=== PATIENT | female | born 1985 | race American Indian/Alaskan Native ===

== ENCOUNTER 2017-01-03 13:02 | Inpatient (IN) | payer OTHER, BC ==
[2017-01-03] MEDS ORDERED: Sodium Chloride 0.9% 10 ML Syringe FLUSH PRN (13:52)
[2017-01-03] MEDS ORDERED: Ampicillin 2 GM in Sodium Chloride 0.9% 100 ML IV ONE (13:52)
[2017-01-03] MEDS ORDERED: Nalbuphine 20 MG/1 ML Amp IVPUSH PRN (13:52)
[2017-01-03] MEDS: Lactated Ringers 1,000 ML IV SCH ×2 (14:15→16:00)
[2017-01-03] MEDS ORDERED: ePHEDrine 50 MG/ML SDV IVPUSH PRN (16:37)
[2017-01-03] MEDS ORDERED: fentaNYL 100 MCG/2 ML SDV EPIDUR PRN (16:37)
[2017-01-03] MEDS ORDERED: Ondansetron 4 MG/2 ML SDV IVPUSH PRN (16:37)
--- NOTE | 2017-01-03 16:39 | PCM.PREANE ---
Preanesthetic Assessment - Anesthesia/Transfusion/Family Hx Anesthesia History: Prior Anesthesia Without Reaction Family History of Anesthesia Reaction: No Transfusion History: No Prior Transfusion(s) Intubation History: Unknown - Review of Systems General: No Symptoms Pulmonary: No Symptoms (quit smoking with ) Cardiovascular: No Symptoms Gastrointestinal: No Symptoms Neurological: No Symptoms Other: Reports: None - Physical Assessment NPO Status Date: 01/03/17 NPO Status Time: 10:15 Pulse: 81 O2 Sat by Pulse Oximetry: 99 Respiratory Rate: 22 Blood Pressure: 107/69 Temperature: 36.4 C Vital Signs: Last Vital Signs Temp 36.4 C 01/03/17 13:52 Pulse 81 01/03/17 15:00 Resp BP 107/69 01/03/17 15:00 Pulse Ox Height: 1.63 m Weight: 68.492 kg ASA Class: 2 Mental Status: Alert & Oriented x3 Airway Class: Mallampati = 2 Dentition: Reports: Normal Dentition, Caries Thyro-Mental Finger Breadths: 3 Mouth Opening Finger Breadths: 3 ROM/Head Extension: Full Lungs: Clear to Auscultation, Normal Respiratory Effort Cardiovascular: Regular Rate, Regular Rhythm, No Murmurs - Lab Values: Laboratory Last Values WBC 12.64 K/mm3 (3.98-10.04) H 01/03/17 14:16 RBC 3.81 M/mm3 (3.98-5.22) L 01/03/17 14:16 Hgb 11.5 gm/L (11.2-15.7) 01/03/17 14:16 Hct 34.1 % (34.1-44.9) 01/03/17 14:16 MCV 89.5 fl (79.4-94.8) 01/03/17 14:16 MCH 30.2 pg (25.6-32.2) 01/03/17 14:16 MCHC 33.7 g/dl (32.2-35.5) 01/03/17 14:16 RDW Std Deviation 42.1 fL (36.4-46.3) 01/03/17 14:16 Plt Count 264 K/mm3 (182-369) 01/03/17 14:16 MPV 10.9 fl (9.4-12.3) 01/03/17 14:16 Above labs reviewed and noted. - Allergies Allergies/Adverse Reactions: Allergies Allergy/AdvReac Type Severity Reaction Status Date / Time No Known Allergies Allergy Verified 01/03/17 13:50 - Anesthesia Plan Pre-Op Medication Ordered: None - Acknowledgements Anesthesia Type Planned: Spinal (Laboring Spinal vs MARCELINO), Epidural Pt an Appropriate Candidate for the Planned Anesthesia: Yes Alternatives and Risks of Anesthesia Discussed w Pt/Guardian: Yes Pt/Guardian Understands and Agrees with Anesthesia Plan: Yes PreAnesthesia Questionnaire HEENT History: Reports: None CRA History: Reports: - Past Surgical History HEENT Surgical History: Reports: Oral Surgery - SUBSTANCE USE Smoking Status *Q: Former Smoker Tobacco Use Within Last Twelve Months: Cigarettes Second Hand Smoke Exposure: No Recreational Drug Use History: No - CURRENT (IN HOUSE) MEDS Current Meds: Current Medications Ampicillin Sodium 1 gm/ Sodium (Chloride) 100 mls @ 200 mls/hr IV Q4H [facility] Lactated Ringer's (Ringers, Lactated) 1,000 mls @ 100 mls/hr IV ASDIRECTED EUGENE Last Admin: 01/03/17 14:15 Dose: 100 mls/hr Nalbuphine HCl (Nubain) 10 mg IVPUSH Q2H PRN PRN Reason: Pain (moderate 4-6) Last Admin: 01/03/17 14:21 Dose: 10 mg Sodium Chloride (Saline Flush) 10 ml FLUSH ASDIRECTED PRN PRN Reason: Keep Vein Open Discontinued Medications Ampicillin Sodium 2 gm/ Sodium (Chloride) 100 mls @ 200 mls/hr IV ONETIME ONE Stop: 01/03/17 14:21 Last Admin: 01/03/17 14:15 Dose: 200 mls/hr
[2017-01-03] MEDS ORDERED: Bupivacaine/fentaNYL/NS 100 ML Bag EPIDUR SCH (16:45)
--- NOTE | 2017-01-03 17:02 | PCM.LDHP ---
L&D History of Present Illness - General Date of Service: 01/03/17 Admit Problem/Dx: Patient Status Order with Admit Dx/Problem 01/03/17 13:52 Patient Status [ADT] Routine Admission Diagnosis/Problem Admission Diagnosis/Problem Source of Information: Patient, Old Records History Limitations: Reports: No Limitations - History of Present Illness Introduction:: 31 year old female at 36w3d by LMP c/w 20 week ultrasound here in labor. care with myself complicated by one prior 36 week and anemia. Contractions started this morning around 7 am and have progressively gotten stronger. No loss of fluid. No vaginal bleeding. Apos/RubNI/GBS pending History of x2 largest 6#. 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: - Past Surgical History HEENT Surgical History: Reports: Oral Surgery Social & Family History - Family History Family Medical History: Noncontributory - Tobacco Use Smoking Status *Q: Former Smoker Used Tobacco, but Quit: Yes Month Tobacco Last Used: may 2016 Second Hand Smoke Exposure: No - Caffeine Use Caffeine Use: Reports: None - Recreational Drug Use Recreational Drug Use: No H&P Review of Systems - Review of Systems: Review Of Systems: See Below General: Reports: No Symptoms HEENT: Reports: No Symptoms Pulmonary: Reports: No Symptoms Cardiovascular: Reports: No Symptoms Gastrointestinal: Reports: No Symptoms Genitourinary: Reports: No Symptoms Musculoskeletal: Reports: No Symptoms Skin: Reports: No Symptoms Psychiatric: Reports: No Symptoms Neurological: Reports: No Symptoms Hematologic/Lymphatic: Reports: No Symptoms Immunologic: Reports: No Symptoms L&D Exam - Exam Exam: See Below - Vital Signs Vital Signs: Last Vital Signs Temp 36.4 C 01/03/17 16:51 Pulse 81 01/03/17 16:51 Resp 22 H 01/03/17 16:51 BP 107/69 01/03/17 16:51 Pulse Ox 99 01/03/17 16:51 Weight: 68.492 kg - OB Specific Contraction Duration (sec): 60 Contraction Frequency (min): 4-5 Contraction Intensity: Mild to Moderate Movement: Active Heart Tones: Present Heart Tones per Min: 140 Heart Rate (FHR) Variability: Moderate (6-25 bmp) Presentation: Vertex - Khanna Score Khanna Score Cervix Position: Midposition Khanna Score Consistency: Soft Khanna Score Effacement: 31-50% Khanna Score Dilation: 3-4 cm Khanna Score Infant's Station: -3 Khanna Score Total: 6 - Exam General: Alert, Oriented HEENT: PERRLA, Conjunctiva Clear, EACs Clear, EOMI, Hearing Intact, Mucosa Moist & Lucas, Nares Patent, Normal Nasal Septum, Posterior Pharynx Clear, TMs Clear Neck: Supple, Trachea Midline Lungs: Clear to Auscultation, Normal Respiratory Effort Cardiovascular: Regular Rate, Regular Rhythm GI/Abdominal Exam: Normal Bowel Sounds, Soft, Non-Tender, No Organomegaly, No Distention, No Abnormal Bruit, No Mass, Pelvis Stable Genitourinary: Normal external exam Back Exam: Normal Inspection, Full Range of Motion Extremities: Normal Inspection, Normal Range of Motion, Non-Tender, No Pedal Edema, Normal Capillary Refill Skin: Warm, Dry, Intact Neurological: Cranial Nerves Intact, Reflexes Equal Bilateral Psychiatric: Alert, Normal Affect, Normal Mood - Patient Data Lab Results Last 24 hrs: Laboratory Results - last 24 hr 01/03/17 Range/Units 14:16 WBC 12.64 H (3.98-10.04) K/mm3 RBC 3.81 L (3.98-5.22) M/mm3 Hgb 11.5 (11.2-15.7) gm/L Hct 34.1 (34.1-44.9) % MCV 89.5 (79.4-94.8) fl MCH 30.2 (25.6-32.2) pg MCHC 33.7 (32.2-35.5) g/dl RDW Std Deviation 42.1 (36.4-46.3) fL Plt Count 264 (182-369) K/mm3 MPV 10.9 (9.4-12.3) fl Result Diagrams: 01/03/17 14:16 - Problem List (1) labor in third trimester SNOMED Code(s): 7173269 ICD Code: O60.03 - LABOR WITHOUT DELIVERY, THIRD TRIMESTER Status: Acute Current Visit: Yes (2) Rubella non-immune status, antepartum SNOMED Code(s): 183875377 ICD Code: O99.89 - OTH DISEASES AND CONDITIONS COMPL PREG/CHLDBRTH; Z28.3 - UNDERIMMUNIZATION STATUS Status: Acute Current Visit: Yes Problem List Initiated/Reviewed/Updated: Yes Orders Last 24hrs: Active Orders 24 hr Category Date Time Status Patient Status [ADT] Routine ADT 01/03/17 13:52 Active Activity as Tolerated [RC] PFP Care 01/03/17 13:52 Active Communication Order [RC] ASDIRECTED Care 01/03/17 13:52 Active Heart Tones [RC] ASDIRECTED Care 01/03/17 13:52 Active Notify Provider [RC] ASDIRECTED Care 01/03/17 16:37 Active Notify Provider [RC] PFP Care 01/03/17 13:52 Active Notify Provider [RC] PRN Care 01/03/17 13:52 Active Oxygen Therapy [RC] ASDIRECTED Care 01/03/17 16:37 Active Peripheral IV Care [RC] . DIRECTED Care 01/03/17 13:52 Active Pulse Oximetry [RC] ASDIRECTED Care 01/03/17 16:37 Active Vital Signs [RC] PER UNIT ROUTINE Care 01/03/17 13:52 Active Clear Liquid Diet [DIET] Diet 01/03/17 Dinner Active GROUP B STREP BY PCR [MOLEC] Routine Lab 01/03/17 13:45 Received Ampicillin 1 gm Med 01/03/17 18:00 Active Sodium Chloride 0.9% [Normal Saline] 100 ml IV Q4H Bupivacaine/fentaNYL/NS [fentaNYL/Bupivacaine/NS 2 MCG- Med 01/03/17 16:45 Active 0.125% 100 ML] 100 ml EPIDUR ASDIRECTED Lactated Ringers [Ringers, Lactated] 1,000 ml Med 01/03/17 14:00 Active IV ASDIRECTED Nalbuphine [Nubain] Med 01/03/17 13:52 Active 10 mg IVPUSH Q2H PRN Ondansetron [Zofran] Med 01/03/17 16:37 Active 4 mg IVPUSH ONETIME PRN Sodium Chloride 0.9% [Saline Flush] Med 01/03/17 13:52 Active 10 ml FLUSH ASDIRECTED PRN ePHEDrine [ePHEDrine Sulfate] Med 01/03/17 16:37 Active 5 mg IVPUSH ASDIRECTED PRN fentaNYL [Sublimaze] Med 01/03/17 16:37 Active 100 mcg EPIDUR Q3H PRN Electronic Heart Tones Ext w TOCO [WOMSER] Oth 01/03/17 13:52 Ordered Routine Electronic Heart Tones Internal [WOMSER] Per Unit Oth 01/03/17 13:52 Ordered Routine Peripheral IV Insertion Adult [OM.PC] Routine Oth 01/03/17 13:52 Ordered Resuscitation Status Routine Resus Stat 01/03/17 13:52 Ordered Medication Orders Ephedrine Sulfate (Ephedrine Sulfate) 5 mg IVPUSH ASDIRECTED PRN PRN Reason: Hypotension Fentanyl (Sublimaze) 100 mcg EPIDUR Q3H PRN PRN Reason: Pain Last Admin: 01/03/17 16:53 Dose: 100 mcg Fentanyl/Bupivacaine HCl (Fentanyl/Bupivacaine/Ns 2 Mcg-0.125% 100 Ml) 100 ml EPIDUR ASDIRECTED EUGENE Ampicillin Sodium 1 gm/ Sodium (Chloride) 100 mls @ 200 mls/hr IV Q4H EUGEN[facility] Lactated Ringer's (Ringers, Lactated) 1,000 mls @ 100 mls/hr IV ASDIRECTED [facility]GEN[facility] Last Admin: 01/03/17 14:15 Dose: 100 mls/hr Nalbuphine HCl (Nubain) 10 mg IVPUSH Q2H PRN PRN Reason: Pain (moderate 4-6) Last Admin: 01/03/17 14:21 Dose: 10 mg Ondansetron HCl (Zofran) 4 mg IVPUSH ONETIME PRN PRN Reason: Nausea/Vomiting Sodium Chloride (Saline Flush) 10 ml FLUSH ASDIRECTED PRN PRN Reason: Keep Vein Open Assessment/Plan Comment:: labor. -GBS pending - will treat based on protocol as . Can stop antibiotics if returns negative -IV fluids - - Pain management per patient desire -MMR
[2017-01-03] MEDS ORDERED: Ampicillin 1 GM in Sodium Chloride 0.9% 100 ML IV SCH (18:00)
[2017-01-03] MEDS ORDERED: Lanolin 100% Cream 7 GM Tube TOP PRN (18:53)
[2017-01-03] MEDS ORDERED: Witch Hazel Medicated Pads 100/Jar TOP PRN (18:53)
[2017-01-03] MEDS ORDERED: Docusate Sodium 100 MG Cap PO PRN (18:53)
[2017-01-03] MEDS ORDERED: Benzocaine/Menthol 20%-0.5% Spray 56 GM Canister TOP PRN (18:53)
[2017-01-03] MEDS ORDERED: Measles, Mumps & Rubella Vaccine 0.5 ML SDV SUBCUT ONE (18:53)
[2017-01-03] MEDS: Ibuprofen 600 MG Tab PO PRN (20:11)
[2017-01-03] MEDS ORDERED: Bupivacaine 0.25% 10 ML SDV ONE (22:22)
--- NOTE | 2017-01-04 07:52 | PCM.PNPP ---
- General Info Date of Service: 01/04/17 Functional Status: Reports: Pain Controlled - Review of Systems General: Reports: No Symptoms HEENT: Reports: No Symptoms Pulmonary: Reports: No Symptoms Cardiovascular: Reports: No Symptoms Gastrointestinal: Reports: No Symptoms Genitourinary: Reports: No Symptoms Musculoskeletal: Reports: No Symptoms Skin: Reports: No Symptoms Neurological: Reports: No Symptoms Psychiatric: Reports: No Symptoms - General Info Date of Service: 01/04/17 - Patient Data Vital Signs - Most Recent: Last Vital Signs Temp 36.1 C 01/04/17 03:53 Pulse 51 L 01/04/17 03:53 Resp 13 01/04/17 03:53 BP 95/53 L 01/04/17 03:53 Pulse Ox 98 01/04/17 03:53 Weight - Most Recent: 68.492 kg I&O - Last 24 Hours: Intake & Output 01/03/17 01/04/17 01/04/17 22:59 06:59 14:59 Intake Total 3000 Balance 3000 Lab Results - Last 24 Hours: Laboratory Results - last 24 hr 01/03/17 Range/Units 14:16 WBC 12.64 H (3.98-10.04) K/mm3 RBC 3.81 L (3.98-5.22) M/mm3 Hgb 11.5 (11.2-15.7) gm/L Hct 34.1 (34.1-44.9) % MCV 89.5 (79.4-94.8) fl MCH 30.2 (25.6-32.2) pg MCHC 33.7 (32.2-35.5) g/dl RDW Std Deviation 42.1 (36.4-46.3) fL Plt Count 264 (182-369) K/mm3 MPV 10.9 (9.4-12.3) fl Med Orders - Current: Current Medications Benzocaine/Menthol (Dermoplast Pain Relief [place]) 0 gm TOP ASDIRECTED PRN PRN Reason: Perineal Comfort Measure Docusate Sodium (Colace) 100 mg PO BID PRN PRN Reason: Constipation Emollient Ointment (Lansinoh Hpa) 0 gm TOP ASDIRECTED PRN PRN Reason: Sore Nipples Last Admin: 01/03/17 20:13 Dose: 1 tube Ibuprofen (Motrin) 600 mg PO Q6H PRN PRN Reason: Mild pain or fever Last Admin: 01/03/17 20:11 Dose: 600 mg Witch Bri (Tucks) 1 pad TOP ASDIRECTED PRN PRN Reason: Hemorrhoid pain Discontinued Medications Ephedrine Sulfate (Ephedrine Sulfate) 5 mg IVPUSH ASDIRECTED PRN PRN Reason: Hypotension Fentanyl (Sublimaze) 100 mcg EPIDUR Q3H PRN PRN Reason: Pain Last Admin: 01/03/17 16:53 Dose: 100 mcg Fentanyl/Bupivacaine HCl (Fentanyl/Bupivacaine/Ns 2 Mcg-0.125% 100 Ml) 100 ml EPIDUR ASDIRECTED [facility] Ampicillin Sodium 2 gm/ Sodium (Chloride) 100 mls @ 200 mls/hr IV ONETIME ONE Stop: 01/03/17 14:21 Last Admin: 01/03/17 14:15 Dose: 200 mls/hr Ampicillin Sodium 1 gm/ Sodium (Chloride) 100 mls @ 200 mls/hr IV Q4H [facility] Last Admin: 01/03/17 18:42 Dose: Not Given Lactated Ringer's (Ringers, Lactated) 1,000 mls @ 100 mls/hr IV ASDIRECTED EUGENE Last Admin: 01/03/17 16:00 Dose: 500 mls/hr Oxytocin 10 unit/ Lactated (Ringer's) 1,001 mls @ 500 mls/hr IV ASDIRECTED EUEGNE Last Infusion: 01/03/17 19:11 Dose: 125 mls/hr Measles/Mumps/Rubella Vaccine Live (M-M-R Ii Vaccine) 0.5 ml SUBCUT .ONCE ONE Stop: 01/03/17 18:54 Nalbuphine HCl (Nubain) 10 mg IVPUSH Q2H PRN PRN Reason: Pain (moderate 4-6) Last Admin: 01/03/17 14:21 Dose: 10 mg Ondansetron HCl (Zofran) 4 mg IVPUSH ONETIME PRN PRN Reason: Nausea/Vomiting Sodium Chloride (Saline Flush) 10 ml FLUSH ASDIRECTED PRN PRN Reason: Keep Vein Open - Interaction Support Person: - Recovery Exam Fundal Tone: Firm Fundal Level: 3 Fingerbreadths Below Umbilicus Fundal Placement: Midline Lochia Amount: Small Lochia Color: Rubra/Red Perineum Description: Intact, Minimal Bruising/Swelling Episiotomy/Laceration: None Bladder Status: Nonpalpable Urinary Elimination: Voided - Exam General: Alert, Oriented HEENT: Pupils Equal Neck: Supple Lungs: Clear to Auscultation, Normal Respiratory Effort Cardiovascular: Regular Rate, Regular Rhythm GI/Abdominal Exam: Normal Bowel Sounds, Soft, Non-Tender, No Organomegaly, No Distention, No Abnormal Bruit, No Mass, Pelvis Stable Extremities: Normal Inspection, Normal Range of Motion, Non-Tender, No Pedal Edema, Normal Capillary Refill Skin: Warm, Dry, Intact Wound/Incisions: Healing Well Neurological: No New Focal Deficit Psy/Mental Status: Alert, Normal Affect, Normal Mood - Problem List & Annotations (1) labor in third trimester SNOMED Code(s): 9964250 Code(s): O60.03 - LABOR WITHOUT DELIVERY, THIRD TRIMESTER Status: Acute Current Visit: Yes (2) Rubella non-immune status, antepartum SNOMED Code(s): 582986243 Code(s): O99.89 - OTH DISEASES AND CONDITIONS COMPL PREG/CHLDBRTH; Z28.3 - UNDERIMMUNIZATION STATUS Status: Acute Current Visit: Yes - Problem List Review Problem List Initiated/Reviewed/Updated: Yes - My Orders Last 24 Hours: My Active Orders 01/03/17 13:45 GROUP B STREP BY PCR [MOLEC] Routine 01/03/17 13:52 Resuscitation Status Routine 01/03/17 18:53 Patient Status [ADT] Routine Activity as Tolerated [RC] PER UNIT ROUTINE Vital Signs [RC] 04,12,20 Benzocaine/Menthol [Dermoplast Pain Relief [place]] See Dose Instructions TOP ASDIRECTED PRN Docusate Sodium [Colace] 100 mg PO BID PRN Ibuprofen [Motrin] 600 mg PO Q6H PRN Lanolin [Lansinoh HPA] See Dose Instructions TOP ASDIRECTED PRN Witch Bri [Tucks] 1 pad TOP ASDIRECTED PRN Assess Lochia [WOMSER] Per Unit Routine Assess Uterine Involution [WOMSER] Per Unit Routine Breast Pump [WOMSER] Per Unit Routine Heat Therapy [OM.PC] PRN Medication Administration Instruction [OM.PC] Routine Perineal Care [OM.PC] Per Unit Routine Sitz Bath [OM.PC] Per Unit Routine 01/03/17 Dinner Regular Diet [DIET] 01/04/17 18:53 Heat Therapy [OM.PC] PRN - Assessment Assessment:: labor and delivery. Doing great. No issues. Routine care. - Plan Plan:: labor and delivery - Doing great. No issues.
--- NOTE | 2017-01-04 09:18 | PCM48HPAN ---
Post Anesthesia Note - EVALUATION WITHIN 48HRS OF ANESTHETIC Vital Signs in Normal Range: Yes Patient Participated in Evaluation: Yes Respiratory Function Stable: Yes Airway Patent: Yes Cardiovascular Function Stable: Yes Hydration Status Stable: Yes Pain Control Satisfactory: Yes Nausea and Vomiting Control Satisfactory: Yes Mental Status Recovered: Yes
[2017-01-04] MEDS: Ibuprofen 600 MG Tab PO PRN (21:35)
--- NOTE | 2017-01-05 08:25 | PCM.DCSUM1 ---
Discharge Summary - Hospital Course Brief History: Admitted in labor and unremarkable labor and course. - Discharge Data Discharge Date: 01/05/17 Discharge Disposition: Home, Self-Care 01 Condition: Good - Discharge Diagnosis/Problem(s) (1) labor in third trimester SNOMED Code(s): 1891966 ICD Code: O60.03 - LABOR WITHOUT DELIVERY, THIRD TRIMESTER Status: Acute Current Visit: Yes (2) Rubella non-immune status, antepartum SNOMED Code(s): 762682009 ICD Code: O99.89 - OTH DISEASES AND CONDITIONS COMPL PREG/CHLDBRTH; Z28.3 - UNDERIMMUNIZATION STATUS Status: Acute Current Visit: Yes - Patient Instructions Diet: Usual Diet as Tolerated Activity: No Strenuous Activities Driving: May Drive Today Showering/Bathing: May Shower Notify Provider of: Fever, Increased Pain, Swelling and Redness, Drainage, Nausea and/or Vomiting - Discharge Plan Home Medications: Home Meds Ferrous Sulfate [Slow Fe] 142 mg PO DAILY 01/03/17 [History] Folic Acid 1 tab PO DAILY 01/03/17 [History] Patient Handouts: Smoking Cessation, Tips for Success, [id number] Referrals: Zoey Andres MD [Primary Care Provider] - - Discharge Summary/Plan Comment DC Time >30 min.: No - General Info Date of Service: 01/05/17 Functional Status: Reports: Pain Controlled - Review of Systems General: Reports: No Symptoms HEENT: Reports: No Symptoms Pulmonary: Reports: No Symptoms Cardiovascular: Reports: No Symptoms Gastrointestinal: Reports: No Symptoms Genitourinary: Reports: No Symptoms Musculoskeletal: Reports: No Symptoms Skin: Reports: No Symptoms Neurological: Reports: No Symptoms Psychiatric: Reports: No Symptoms - Patient Data Vitals - Most Recent: Last Vital Signs Temp 36.6 C 01/05/17 03:50 Pulse 57 L 01/05/17 03:50 Resp 16 01/05/17 03:50 BP 94/53 L 01/05/17 03:50 Pulse Ox 98 01/05/17 03:50 Weight - Most Recent: 68.492 kg Lab Results - Last 24 hrs: Laboratory Results - last 24 hr 01/03/17 Range/Units 13:45 Group B Strep (PCR) Negative (NEGATIVE) Med Orders - Current: Current Medications Benzocaine/Menthol (Dermoplast Pain Relief [place]) 0 gm TOP ASDIRECTED PRN PRN Reason: Perineal Comfort Measure Docusate Sodium (Colace) 100 mg PO BID PRN PRN Reason: Constipation Emollient Ointment (Lansinoh Hpa) 0 gm TOP ASDIRECTED PRN PRN Reason: Sore Nipples Last Admin: 01/03/17 20:13 Dose: 1 tube Ibuprofen (Motrin) 600 mg PO Q6H PRN PRN Reason: Mild pain or fever Last Admin: 01/04/17 21:35 Dose: 600 mg Witch Bri (Tucks) 1 pad TOP ASDIRECTED PRN PRN Reason: Hemorrhoid pain Discontinued Medications Ephedrine Sulfate (Ephedrine Sulfate) 5 mg IVPUSH ASDIRECTED PRN PRN Reason: Hypotension Fentanyl (Sublimaze) 100 mcg EPIDUR Q3H PRN PRN Reason: Pain Last Admin: 01/03/17 16:53 Dose: 100 mcg Fentanyl/Bupivacaine HCl (Fentanyl/Bupivacaine/Ns 2 Mcg-0.125% 100 Ml) 100 ml EPIDUR ASDIRECTED [facility] Ampicillin Sodium 2 gm/ Sodium (Chloride) 100 mls @ 200 mls/hr IV ONETIME ONE Stop: 01/03/17 14:21 Last Admin: 01/03/17 14:15 Dose: 200 mls/hr Ampicillin Sodium 1 gm/ Sodium (Chloride) 100 mls @ 200 mls/hr IV Q4H [facility] Last Admin: 01/03/17 18:42 Dose: Not Given Lactated Ringer's (Ringers, Lactated) 1,000 mls @ 100 mls/hr IV ASDIRECTED [facility] Last Admin: 01/03/17 16:00 Dose: 500 mls/hr Oxytocin 10 unit/ Lactated (Ringer's) 1,001 mls @ 500 mls/hr IV ASDIRECTED [facility] Last Infusion: 01/03/17 19:11 Dose: 125 mls/hr Measles/Mumps/Rubella Vaccine Live (M-M-R Ii Vaccine) 0.5 ml SUBCUT .ONCE ONE Stop: 01/03/17 18:54 Nalbuphine HCl (Nubain) 10 mg IVPUSH Q2H PRN PRN Reason: Pain (moderate 4-6) Last Admin: 01/03/17 14:21 Dose: 10 mg Ondansetron HCl (Zofran) 4 mg IVPUSH ONETIME PRN PRN Reason: Nausea/Vomiting Sodium Chloride (Saline Flush) 10 ml FLUSH ASDIRECTED PRN PRN Reason: Keep Vein Open - Exam General: Reports: Alert, Oriented HEENT: Reports: Pupils Equal, Pupils Reactive, EOMI, Mucous Membr. Moist/[place] Neck: Reports: Supple Lungs: Reports: Clear to Auscultation, Normal Respiratory Effort Cardiovascular: Reports: Regular Rate, Regular Rhythm GI/Abdominal Exam: Normal Bowel Sounds, Soft, Non-Tender, No Organomegaly, No Distention, No Abnormal Bruit, No Mass, Pelvis Stable (Female) Exam: Normal External Exam, Normal Speculum Exam, Normal Bimanual Exam Back Exam: Reports: Normal Inspection, Full Range of Motion Extremities: Normal Inspection, Normal Range of Motion, Non-Tender, No Pedal Edema, Normal Capillary Refill Skin: Reports: Warm, Dry, Intact Wound/Incisions: Reports: Healing Well Neurological: Reports: No New Focal Deficit Psy/Mental Status: Reports: Alert, Normal Affect, Normal Mood *Q Meaningful Use (DIS) - VTE *Q VTE Criteria *Q: - Stroke *Q Stroke Criteria *Q: - AMI *Q AMI Criteria *Q:
== END 2017-01-05 12:00 | disposition home or self-care (01) | DRG 775 ==
LOC: JD.OBCHECK 13:02 → JD.OB 13:02 → JD.OBCHECK 13:51 → JD.OB 13:52 → OBSVTOIN 17:58
PROVIDERS: ADMIT Obstetrics & Gynecology; ATTEND Obstetrics & Gynecology
PROC: 10E0XZZ Delivery of Products of Conception, External Approach (ICD-10-PCS; principal; 2017-01-03)
PROC: 10907ZC Drainage of Amniotic Fluid, Therapeutic from Products of Conception, Via Natural or Artificial Opening (ICD-10-PCS; 2017-01-03)
PROC: 00HU33Z Insertion of Infusion Device into Spinal Canal, Percutaneous Approach (ICD-10-PCS; 2017-01-03)
PROC: 3E0R3BZ Introduction of Anesthetic Agent into Spinal Canal, Percutaneous Approach (ICD-10-PCS; 2017-01-03)
PROC: 3E0234Z Introduction of Serum, Toxoid and Vaccine into Muscle, Percutaneous Approach (ICD-10-PCS; 2017-01-05)
DX: O60.14X0 Preterm labor third trimester with preterm delivery third trimester, not applicable or unspecified (principal); Z37.0 Single live birth; Z3A.36 36 weeks gestation of pregnancy; Z87.891 Personal history of nicotine dependence; Z23 Encounter for immunization; O69.81X0 Labor and delivery complicated by cord around neck, without compression, not applicable or unspecified
CPT/HCPCS: 01967; 36415; 59409; 85027; 87653; 90707; A9270-GY; J0290; J2300; J2590; J3010; J7030; J7120

== ENCOUNTER 2019-04-24 15:28 | Emergency (ER) | payer BC, OTHER ==
[2019-04-24] MEDS ORDERED: Oseltamivir 75 MG Cap PO ONE (16:45)
--- NOTE | 2019-04-24 16:50 | EDM.PDOC ---
ED HPI GENERAL MEDICAL PROBLEM - General Chief Complaint: Respiratory Problem Stated Complaint: FLU SX Time Seen by Provider: 04/24/19 15:39 Source of Information: Reports: Patient, RN Notes Reviewed History Limitations: Reports: No Limitations - History of Present Illness INITIAL COMMENTS - FREE TEXT/NARRATIVE: Patient is a 33-year-old female who presents to the ED for flulike symptoms. She notes that these started early this morning, and have not gotten much better , she reports a headache, body aches, sore throat, fevers and chills. Of note she is afebrile at the time of the ER visit. She did not have a influenza vaccination this year. She did take 2 Motrin this morning, and 1 more 200 mg tablet just prior to arrival to the ER. She has not really eaten or drinking much today due to the throat pain. Headache Pain Score (Numeric/FACES): 7 Throat Pain Score (Numeric/FACES): 5 - Related Data Allergies Allergy/AdvReac Type Severity Reaction Status Date / Time No Known Allergies Allergy Verified 01/03/17 13:50 Home Meds: Home Meds Ferrous Sulfate [Slow Fe] 142 mg PO DAILY 01/03/17 [History] Oseltamivir [Tamiflu] 75 mg PO BID #9 cap 04/24/19 [Rx] Past Medical History [employer] History: Reports: - Past Surgical History HEENT Surgical History: Reports: Oral Surgery Social & Family History - Family History Family Medical History: Noncontributory - Tobacco Use Smoking Status *Q: Current Every Day Smoker Years of Tobacco use: 10 Packs/Tins Daily: 0.5 - Caffeine Use Caffeine Use: Reports: Soda - Recreational Drug Use Recreational Drug Use: No ED ROS GENERAL - Review of Systems Review Of Systems: Comprehensive ROS is negative, except as noted in HPI. Constitutional: Reports: Fever, Chills HEENT: Reports: Throat Pain Respiratory: Reports: Cough GI/Abdominal: Denies: Abdominal Pain, Diarrhea, Nausea, Vomiting Neurological: Reports: Headache ED EXAM, GENERAL - Physical Exam Exam: See Below Exam Limited By: No Limitations General Appearance: Alert, WD/WN, No Apparent Distress Eye Exam: Bilateral Eye: EOMI, Normal Inspection, PERRL Throat/Mouth: Normal Inspection, Normal Lips, Normal Teeth, Normal Gums, Normal Oropharynx, Normal Voice, No Airway Compromise Head: Atraumatic, Normocephalic Respiratory/Chest: No Respiratory Distress, Lungs Clear, Normal Breath Sounds, No Accessory Muscle Use, Chest Non-Tender Cardiovascular: Normal Peripheral Pulses, Regular Rate, Rhythm, No Murmur GI/Abdominal: Normal Bowel Sounds, Soft, Non-Tender, No Distention, No Mass Extremities: Normal Inspection, Normal Capillary Refill Neurological: Alert, Oriented, Normal Cognition, No Motor/Sensory Deficits Psychiatric: Normal Affect, Normal Mood Skin Exam: Warm, Dry, Intact, Normal Color, No Rash Course - Vital Signs Last Recorded V/S: Last Vital Signs Temp 98.7 F 04/24/19 15:41 Pulse 91 04/24/19 15:41 Resp 20 04/24/19 15:41 BP 95/66 04/24/19 15:41 Pulse Ox 100 04/24/19 15:41 - Orders/Labs/Meds Orders: Active Orders 24 hr Category Date Time Status Oseltamivir [Tamiflu] Med 04/24/19 16:45 Once 75 mg PO ONETIME ONE - Re-Assessments/Exams Free Text/Narrative Re-Assessment/Exam: 04/24/19 16:48 Patient presents to the ED for the evaluation of flulike symptoms. Influenza swab was obtained at time of triage, this was negative at this time however due to the patient's course, it is likely that we did not catch it on the swab or her disease is too early in development. I will treat her for influenza as she clinically has it by symptomology. Departure - Departure Time of Disposition: 16:48 Disposition: Home, Self-Care 01 Condition: Fair Clinical Impression: Influenza - Discharge Information *PRESCRIPTION DRUG MONITORING PROGRAM REVIEWED*: No *COPY OF PRESCRIPTION DRUG MONITORING REPORT IN PATIENT MIGUEL A: No Instructions: Influenza, Adult, [id number] Referrals: PCP,None [Primary Care Provider] - Forms: ED Department Discharge, ED Return to Work/School Form Additional Instructions: You were evaluated in the ER today for your flulike symptoms. Your influenza swab was negative for influenza however this is not a perfect test, and due to your symptoms developing this morning it is likely that the disease course is too early to have caught it on a swab anyways. Nonetheless clinically you have been diagnosed with influenza. You were given a dose of Tamiflu in the ER, please continue this until the prescription is gone. The prescription was sent to the [facility] in [place], you will need to go there tomorrow morning and pick this up for further use. Recommend you use 500 mg Tylenol or 600 mg ibuprofen every 6 hours for further pain relief/symptom control. Please stick to a clear liquid diet over the next few days, advance to bland as tolerated. Please try to limit your exposure to others until you are 24 hours fever free. Please return to the ER at any time if your symptoms change or worsen. Sepsis Event Note - Evaluation Sepsis Screening Result: No Definite Risk - Focused Exam Vital Signs: Vital Signs Temp Pulse Resp BP Pulse Ox 04/24/19 15:41 98.7 F 91 20 95/66 100 Date Exam was Performed: 04/24/19 Time Exam was Performed: 16:45 - My Orders Last 24 Hours: My Active Orders 04/24/19 16:45 Oseltamivir [Tamiflu] 75 mg PO ONETIME ONE - Assessment/Plan Last 24 Hours: My Active Orders 04/24/19 16:45 Oseltamivir [Tamiflu] 75 mg PO ONETIME ONE
== END 2019-04-24 17:06 | disposition home or self-care (01) ==
LOC: JD.ED 15:28
DX: J11.1 Influenza due to unidentified influenza virus with other respiratory manifestations (principal); F17.210 Nicotine dependence, cigarettes, uncomplicated; Z79.899 Other long term (current) drug therapy
CPT/HCPCS: 87804; 99284; A9270; 99282